=== PATIENT | female | born 1965 ===

== ENCOUNTER → 2017-01-21 | Day surgery (SDC) | payer OTHER ==
--- NOTE | 2017-01-18 23:18 | Pre-op HX & Phy Repo 2 SIG ---
DATE OF ADMISSION: 01/21/2017 PREOPERATIVE DIAGNOSIS: Vitreous hemorrhage with traction and ischemia of the left eye. BRIEF NOTE: This is a first [place] admission for this patient, who is a very nice 51-year-old lady with a long history of very severe diabetic retinopathy. She has developed a vitreous hemorrhage in both eyes as well as severe ischemia despite extensive laser and prior Avastin injections. She is admitted for vitrectomy and extensive peripheral laser as well as Avastin and membrane peeling as needed. Her past ocular history is remarkable for extensive laser treatment in both eyes. 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 She has complained of progressive blurring. PAST MEDICAL HISTORY: Remarkable for diabetes and hypertension. ALLERGIES: She has no allergies. CURRENT MEDICATIONS: She is currently on tramadol, atorvastatin, gabapentin, and metformin. SOCIAL HISTORY: She does not smoke or drink. PHYSICAL EXAMINATION: Best vision at the time of admission was 20/400 in the right eye and 20/50 in the left with pressures of 33 and 16. The anterior segment on the right showed a valve in reasonable position. There appeared to be chronic rubeosis. The left anterior segment showed a suspicion of rubeosis. The chamber was otherwise deep and quiet. The lens showed moderate nuclear sclerosis in either eye. Funduscopic examination of the right eye revealed a widespread laser. There was obvious disc neovascularization and some degree of nerve pallor. Moderate vitreous hemorrhage was seen in either eye. ASSESSMENT: Severe proliferative diabetic retinopathy in both eyes with vitreous hemorrhage bilaterally. PLAN: The plan is to perform a pars plana vitrectomy with membrane dissection, endolaser, and Avastin injection on the left eye. The risks and benefits of surgery were gone over with the patient with potential infection, hemorrhage, worsening of the cataract, remote possibility of loss of the eye. The risk of anesthesia was discussed. The patient understands and consents to surgery to be performed on Saturday. Brant Jean M.D. DR: TODD JOB#: [id number] CC: RENÉE
[2017-01-21] VITALS (13 sets, daily range): BP systolic 113–156; BP diastolic 54–75
[~2017-01-21] VITALS: Ht 154.9 cm; Wt 54.4 kg
[~2017-01-21] MED LIST: Avastin 10mg Inj IVITRE ONE; BSS 15ml BTL ONE; BSS 500ml btl ONE; Bupivacaine 0.75% 30ml vial INJ ONE; Cyclopentolate 1% Opth Sol ONE; Dexamethasone 4mg/ml vial ONE; DiphenhydrAMINE 50mg/ml Inj IVP PRN; EPINEPHrine 1mg/1ml Amp ONE; Flurbiprofen 0.03% Opth Sol 2.5ml ONE; Gatifloxacin Opth Solution 0.5% ONE; Kenalog-10 5ml Inj ONE; Kenalog-40 1ml Vial ONE; LEVEMIR FL100 UNIT/1 SUBQ; LR 1000ml 1,000 ML IVLG SCH; LR 1000ml ONE; Lidocaine 2% MPF 5ml Vial INJ ONE; METFORMIN HCL1000 M1 ORAL; Maxitrol Opth Oint 3.5gm ONE; Midazolam 2mg/2ml Inj ONE; NS Irrig 1000ml ONE; Norco 5mg/325mg tab ORAL PRN; Phenylephrine 2.5% Op Soln ONE; Povidone-Iodine 5% opth solution ONE; Pred Forte 1% Opth Susp 1ml LEFT EYE SCH; Propofol 10mg/ml 20ml IV ONE; Sodium Hyaluronate 10 mg/ml 0.85ml ONE; Sterile Water Irrig 1000ml IRRIG ONE; Tetracaine 0.5% Opth Soln ONE; fentaNYL 100 mcg/2 mL IV ONE; fentaNYL 100 mcg/2 mL IV PRN
--- NOTE | 2017-01-21 06:41 | Pre-Procedure Note/Attestation ---
Pre-Procedure Note/Attestation Complete Prior to Procedure Planned Procedure: right Procedure Narrative: PPV, membrane peel, endolaser, Avastin injection L eye Indications for Procedure Pre-Operative Diagnosis: Vitreous hemorrhage, ocular ischemia, Diabetic retinopathy with macular edema L eye Attestation I attest that I discussed the nature of the procedure; its benefits; risks and complications; and alternatives (and the risks and benefits of such alternatives ), prior to the procedure, with the patient (or the patient's legal client support representative). I attest that, if there was a reasonable possibility of needing a blood transfusion, the patient (or the patient's legal client support representative) was given the [place] Department [employer] standardized written summary, pursuant to the Brett Teddy Blood Safety Act ([place] Health and Safety Code # 1645, as amended). I attest that I re-evaluated the patient just prior to the surgery and that there has been no change in the patient's H&P, except as documented below: JESSIE SORENSEN Jan 21, 2017 06:41
[2017-01-21] MEDS: Cyclopentolate 1% Opth Sol LEFT EYE SCH ×3 (07:04→07:29)
[2017-01-21] MEDS: Phenylephrine 2.5% Op Soln LEFT EYE SCH ×3 (07:04→07:30)
[2017-01-21] MEDS: Gatifloxacin Opth Solution 0.5% LEFT EYE SCH ×3 (07:05→07:30)
[2017-01-21] MEDS: Flurbiprofen 0.03% Opth Sol 2.5ml LEFT EYE SCH ×3 (07:05→07:30)
[2017-01-21 07:31] LABS: EOSINOPHILS % (AUTO) 2.2 % (0.0-3.0); LYMPHOCYTES % (AUTO) 16.2 % (20.0-45.0); MEAN CORPUSCULAR HEMOGLOBIN 31.2 PG (27.0-31.0); MEAN CORPUSCULAR HGB CONC 33.8 G/DL (32.0-36.0); MEAN CORPUSCULAR VOLUME 92 FL (80-99); MEAN PLATELET VOLUME 6.9 FL (6.5-10.1); MONOCYTES % (AUTO) 4.9 % (1.0-10.0); NEUTROPHILS % (AUTO) 75.8 % (45.0-75.0); PLATELET COUNT 286 K/UL (150-450); RED BLOOD COUNT 4.51 M/UL (4.20-5.40); RED CELL DISTRIBUTION WIDTH 11.9 % (11.6-14.8); WHITE BLOOD COUNT 12.8 K/UL (4.8-10.8)
[2017-01-21 08:02] LABS: ANION GAP 11 (5-15); CALCIUM 9.1 mg/dL (8.6-10.2); CARBON DIOXIDE 29 mEQ/L (20-30); CHLORIDE 96 mEQ/L (98-107); CREATININE 0.8 mg/dL (0.5-0.9); GLOMERULAR FILTRATION RATE > 60 mL/min (>60); HEMOLYSIS 2; POTASSIUM 4.4 mEQ/L (3.4-4.9); SODIUM 136 mEQ/L (135-145)
--- NOTE | 2017-01-21 09:23 | Anethesia Preoperative Eval ---
Anesthesia Pre-op PMH/ROS General Date of Evaluation: Jan 21, 2017 Time of Evaluation: 08:40 Anesthesiologist: Roberta ASA Score: ASA 3 Mallampati Score Class I : Soft palate, uvula, fauces, pillars visible Class II: Soft palate, uvula, fauces visible Class III: Soft palate, base of uvula visible Class IV: Only hard plate visible Mallampati Classification: Class II Surgeon: Miranda Diagnosis: R eye vitreous hemorhrage Surgical Procedure: R eye PPV Anesthesia History: none Social History: current smoker Family History: no anesthesia problems Allergies: Coded Allergies: PENICILLINS (Verified Allergy, Severe, 01/21/17) VAGINAL ITCHING Medications: see eMAR Past Medical History Cardiovascular: Reports: HTN - mild, Denies: CAD, DC, arrhythmia, other, valve dz Pulmonary: Denies: COPD, EMILIA, asthma, other Gastrointestinal/Genitourinary: Reports: GERD, Denies: CRI, ESRD, other Neurologic/Psychiatric: Reports: depression/anxiety, Denies: CVA, TIA, dementia, other Endocrine: Reports: DM - poorly controled, Denies: hypothyroidism, other, steroids HEENT: Reports: cataract (L), cataract (R), glaucoma, other - diabetic retinopathy Hematology/Immune: Denies: DVT, anemia, bleeding disorder, other Musculoskeletal/Integumentary: Reports: DJD, Denies: DDD, OA, RA, edema, other Other: other - malnourished PMH Narrative: as above PSxH Narrative: see chart Anesthesia Pre-op Phys. Exam Physician Exam Last Vital Signs Date Time Temp Pulse Resp B/P Pulse Ox O2 Delivery O2 Flow Rate FiO2 01/21/17 07:24 97.7 74 20 156/75 100 Room Air Constitutional: NAD Neurologic: CN 2-12 intact Cardiovascular: RRR, no M/R/G Respiratory: CTA Gastrointestinal: S/NT/ND Airway Exam Mallampati Score: Class II MO: limited Neck: stiff ROM: limited Teeth: missing Dentures: no lower, no upper Anesthesia Pre-op A/P Labs Hematology Test 01/21/17 07:10 White Blood Count 12.8 K/UL (4.8-10.8) H Red Blood Count 4.51 M/UL (4.20-5.40) Hemoglobin 14.1 G/DL (12.0-16.0) Hematocrit 41.7 % (37.0-47.0) Mean Corpuscular Volume 92 FL (80-99) Mean Corpuscular Hemoglobin 31.2 PG (27.0-31.0) H Mean Corpuscular Hemoglobin Concent 33.8 G/DL (32.0-36.0) Red Cell Distribution Width 11.9 % (11.6-14.8) Platelet Count 286 K/UL (150-450) Mean Platelet Volume 6.9 FL (6.5-10.1) Neutrophils (%) (Auto) 75.8 % (45.0-75.0) H Lymphocytes (%) (Auto) 16.2 % (20.0-45.0) L Monocytes (%) (Auto) 4.9 % (1.0-10.0) Eosinophils (%) (Auto) 2.2 % (0.0-3.0) Basophils (%) (Auto) 1.0 % (0.0-2.0) Chemistry Test 01/21/17 07:45 Sodium Level 136 mEQ/L (135-145) Potassium Level 4.4 mEQ/L (3.4-4.9) Chloride Level 96 mEQ/L (98-107) L Carbon Dioxide Level 29 mEQ/L (20-30) Anion Gap 11 (5-15) Blood Urea Nitrogen 14 mg/dL (7-23) Creatinine 0.8 mg/dL (0.5-0.9) Estimat Glomerular Filtration Rate > 60 mL/min (>60) Glucose Level 245 mg/dL (74-106) H Calcium Level 9.1 mg/dL (8.6-10.2) Studies Pre-op Studies: EKG - NSR Risk Assessment & Plan Assessment: ASA 3 Plan: MAC with retrobulbar block Status Change Before Surgery: No Pre-Antibiotics Drug: none MARTINA ESTEVES M.D. Jan 21, 2017 09:23
--- NOTE | 2017-01-21 09:54 | Immediate Post-Op Evaluation ---
Immediate Post-Op Evalulation Immediate Post-Op Evalulation Procedure: Ln eye PPV Date of Evaluation: Jan 21, 2017 Time of Evaluation: 09:53 IV Fluids: 300 Blood Products: none Estimated Blood Loss: min Urinary Output: none Blood Pressure Systolic: 116 Blood Pressure Diastolic: 58 Pulse Rate: 74 Respiratory Rate: 20 O2 Sat by Pulse Oximetry: 99 Temperature (Fahrenheit): 97.8 Pain Score (1-10): 1 Nausea: No Vomiting: No Complications none Patient Status: awake, patent, none Hydration Status: adequate MARTINA ESTEVES M.D. Jan 21, 2017 09:54
--- NOTE | 2017-01-21 09:54 | Brief Operative Note ---
Immediate Post Operative Note Operative Note Chief Complaint: Clouds in vision, blurring Pre-op Diagnosis: Vitreous hemorrhage, ocular ischemia, Diabetic retinopathy with macular edema L eye Procedure: PPV,.membrane peel, endolaser 1021 spots, Kenalog injection, Avastin injection L eye. Post-op Diagnosis: same as pre-op Findings: consistent w/pre-op dx studies Surgeon: roma Anesthesiologist: lisa Anesthesia: MAC Specimen: none Complications: none Condition: stable Estimated Blood Loss: none Drains: none Implant(s) used?: No JESSIE SORENSEN Jan 21, 2017 09:54
--- NOTE | 2017-01-21 12:49 | 48 Hour Post Anesthesia Eval ---
Post Anesthesia Evaluation Procedure: Ln eye PPV Date of Evaluation: Jan 21, 2017 Time of Evaluation: 12:48 Blood Pressure Systolic: 124 0: 65 Pulse Rate: 72 Respiratory Rate: 20 Temperature (Fahrenheit): 97.6 O2 Sat by Pulse Oximetry: 98 Airway: patent Nausea: No Vomiting: No Pain Intensity: 2 Hydration Status: adequate Cardiopulmonary Status: stable Mental Status/LOC: patient returned to baseline Follow-up Care/Observations: n/a Post-Anesthesia Complications: none MARTINA ESTEVES M.D. Jan 21, 2017 12:49
--- NOTE | 2017-01-21 15:48 | Pre-op HX & Phy Repo 2 SIG ---
DATE OF ADMISSION: 01/21/2017 PRESURGICAL INTERNAL MEDICINE HISTORY AND PHYSICAL REASON FOR EVALUATION: I was asked by Dr. Brant Jean to see this 51-year-old, Armenian-speaking female, who is going for elective surgery on the left eye. The patient has severe proliferative diabetic retinopathy and vitreous hemorrhage, left eye. Please see full ophthalmology History and Physical by Dr. Brant Jean. The patient was examined. Chart was reviewed. PAST MEDICAL HISTORY/REVIEW OF SYSTEMS: Remarkable for insulin-dependent diabetes mellitus, anxiety, and depression. Denies history of heart problem, chest pain, palpitation, or angina. No history of stroke or seizures. No hypertension. Denies history of respiratory problem, asthma, or bronchitis. No history of GI bleeding, heartburn, or hepatitis. No history of renal insufficiency. Denies history of thyroid problem or anemia. PAST SURGICAL HISTORY: History of left eye cataract. FAMILY HISTORY: Mother has diabetes mellitus. ALLERGIES: To penicillin developed itching. CURRENT MEDICATIONS: Include Levemir 36 units, last dose 7 p.m. yesterday, metformin 1000 mg daily. HABITS: The patient is still smoking about 10 cigarettes a day . PHYSICAL EXAMINATION: GENERAL: The patient is alert, well-developed and well-nourished female, no acute distress. VITAL SIGNS: Blood pressure 156/75, temperature 97.7 degrees Fahrenheit , pulse 74 and regular, and O2 saturation 100% on room air. SKIN: Pale and dry. No rashes. LYMPHATICS: Lymph nodes not enlarged. HEENT: Head, normocephalic. Ears, clear. No discharge. Nose, clear. No discharge. Mouth, clear and moist. Tongue midline. No dentures. Eyes, full description per Dr. Brant Jean. NECK: Supple. No jugular distention. Carotids artery +2. Trachea is midline. CHEST: No deformity or asymmetry. LUNGS: Clear to auscultation percussion. No rales or rhonchi. HEART: Sinus rhythm. No ectopy. No murmur. No S3 or S4. ABDOMEN: Soft and benign. Liver and spleen not enlarged. No rebound. EXTREMITIES: No calf tenderness. No deformity. No varicose veins. NEUROLOGIC: No tremor, no nystagmus. LABORATORY AND DIAGNOSTIC DATA: ECG sinus rhythm 74 per minute, normal ECG. Fasting blood sugar 207. CBC, white blood cell 12.8, hemoglobin 14.1, hematocrit 41.7. Chemistry pending. IMPRESSION: 1. Severe proliferative diabetic retinopathy and vitreous hemorrhage, left eye. 2. Insulin-dependent diabetes mellitus, poor control. 3. Anxiety and depression. PLAN: Pars plana vitrectomy, 23G endolaser, possible injection left eye per Dr. Brant Jean. Conclusion: The patient has insulin-dependent diabetes mellitus. She is a diabetic and blood sugar not adequately controlled. EKG is normal. The patient did not eat from 11:30 p.m. yesterday. Her condition optimized for surgery. Thank you very much, Dr. Jean, for privilege to participate in presurgical care of this interesting patient. Yimi Flowers M.D. DR: Jaden JOB#: [id number] CC:
--- NOTE | 2017-01-21 19:18 | Operative Note - Dictated ---
DATE OF OPERATION: 01/21/2017 PREOPERATIVE DIAGNOSIS: Vitreous hemorrhage with posterior traction and ischemia, left eye. POSTOPERATIVE DIAGNOSIS: Vitreous hemorrhage with posterior traction and ischemia, left eye. PROCEDURES: 1. Pars plana vitrectomy. 2. Membrane elevation and peeling. 3. Endolaser. 4. Kenalog injection. 5. Avastin injection, left eye. SURGEON: Brant Jean M.D. WINDOWS SERVER ARCHITECT: None. ANESTHESIA: Local with sedation. ANESTHESIOLOGIST: Dae Granados M.D. JUSTIFICATION FOR SURGERY: This 51-year-old lady with a long history of diabetes and severe ischemia resulting in rubeosis, developed recurrent hemorrhaging and was admitted for vitrectomy. BRIEF NOTE: The patient was brought to the operating room and placed on operating room table in supine position. After a time-out was performed and agreed upon by the staff and initial monitoring secured by Dr. Granados, retrobulbar and Van Lint blocks were given in the standard way. When the blocks taken effect, she was prepped and draped in normal manner. A lid speculum was inserted into the left eye. Using a 23-gauge trocar system cannulas were placed in all except infranasal quadrant. Infusion secured inferotemporally. Vitrectomy was begun posterior to the lens taking care to avoid contact. A central core vitrectomy was done followed by peripheral vitrectomy leaving a small vitreous skirt. Using gentle suction, the posterior membrane and hyaloid were engaged adjacent to the optic nerve and gently elevated. With the cutter being used as a pick, the membrane was peeled and dissected free with no evidence of fibrosis lifting the retina. No problems with hemorrhaging were encountered. The vitrectomy was continued peripherally leaving a small vitreous skirt. Scleral depression done at this time. It showed no peripheral breaks, tears, or detachments. Kenalog had been used to aid in visualization of the membranes. The endolaser was then brought into the eye and a power of 0.3 alas, duration 0.2 seconds, a total of 1051 lesions were applied in a broad band from just posterior to the equator out anterior near the pars plana. With the pressure lowered, no bleeding was encountered. Avastin 1.25 mg was then injected with the infusion off. The eye was reinflated and all cannulas removed. The wounds were massaged and all noted to be self-sealing. Subconjunctival Decadron and gentamicin were injected inferiorly and Maxitrol and atropine ointments were instilled. The eye was patched and shielded and the patient taken to recovery in excellent condition. No complications. Brant Jean M.D. DR: JESSIKA JOB#: [id number] CC: Brant Jean M.D.; Fax#: [phone] [facility]
--- NOTE | 2017-01-25 15:47 | Cardiology Report ---
APPROVED REPORT EKG Measurement Heart [id number] Normal sinus rhythm Normal ECG
== END | disposition home or self-care (01) ==
LOC: SUR 05:59
DX: H43.12 Vitreous hemorrhage, left eye (principal); H43.822 Vitreomacular adhesion, left eye; E11.3592 Type 2 diabetes mellitus with proliferative diabetic retinopathy without macular edema, left eye; H21.1X2 Other vascular disorders of iris and ciliary body, left eye; Z79.4 Long term (current) use of insulin; Z79.84 Long term (current) use of oral hypoglycemic drugs; K21.9 Gastro-esophageal reflux disease without esophagitis; I10 Essential (primary) hypertension; F32.9 Major depressive disorder, single episode, unspecified; F41.9 Anxiety disorder, unspecified; F17.210 Nicotine dependence, cigarettes, uncomplicated; M19.90 Unspecified osteoarthritis, unspecified site; Z88.0 Allergy status to penicillin; Z79.891 Long term (current) use of opiate analgesic; Z79.899 Other long term (current) drug therapy
CPT/HCPCS: 36415; 67042; 80048; 82962; 85025; 93005; J0171; J1100; J2250; J2704; J3010; J3301; J3470; J3490; J7120; J9035; 94003; 94150